=== PATIENT | male | born 1970 ===

== ENCOUNTER 2016-10-16 20:34 | Emergency (ER) | payer SELFPAY ==
[2016-10-16 20:48] VITALS: RESP 16; TEMP 98.1
[2016-10-16] MEDS ORDERED: Oxycodone/Acetaminophen 5/325 mg Tab PO STA (21:01)
--- NOTE | 2016-10-16 21:16 | ED PDOC ---
Upper Extremity Pain/Injury Time Seen by Provider: 10/16/16 20:49 Chief Complaint (Nursing): Upper Extremity Problem/Injury Chief Complaint (Provider): Atraumatic left shoulder pain and numbness History Per: Patient, Family History/Exam Limitations: no limitations Onset/Duration Of Symptoms: Days Current Symptoms Are (Timing): Still Present Additional Complaint(s): David Rodriguez, a 46 year old male, presents to the ED with atraumatic left shoulder pain and numbness. The patient states that last night the pain got worse and he then developed left sided chest pain. He reports that the pain worsens with movement of the left shoulder. Denies shortness of breath, abdominal pain, fever and dyspnea on exertion. Past Medical History Reviewed: Historical Data, Nursing Documentation, Vital Signs Vital Signs: Last Vital Signs Temp 98.1 F 10/16/16 20:47 Pulse 83 10/16/16 20:47 Resp 16 10/16/16 20:47 BP 147/83 10/16/16 20:47 Pulse Ox 99 10/16/16 20:47 - Medical History PMH: Gastritis, Gastrointestinal Ulcer (and GI bleed) Denies: Chronic Kidney Disease - Surgical History Surgical History: Endoscopy - Family History Family History: States: Unknown Family Hx - Allergies Allergies/Adverse Reactions: Allergies Allergy/AdvReac Type Severity Reaction Status Date / Time No Known Allergies Allergy Verified 09/23/15 09:12 Review of Systems Constitutional: Negative for: Fever Cardiovascular: Positive for: Chest Pain (Left sided chest pain) Respiratory: Positive for: Shortness of Breath. Negative for: SOB with Exertion Gastrointestinal: Negative for: Abdominal Pain Musculoskeletal: Positive for: Shoulder Pain (Left sided shoulder pain and numbness.) Physical Exam - Reviewed Nursing Documentation Reviewed: Yes Vital Signs Reviewed: Yes - Physical Exam Appears: Positive for: Non-toxic, No Acute Distress Head Exam: Positive for: ATRAUMATIC, NORMOCEPHALIC Skin: Positive for: Normal Color, Warm, Dry Eye Exam: Positive for: Normal appearance, EOMI, PERRL ENT: Positive for: Normal ENT Inspection Neck: Positive for: Normal, Painless ROM, Supple Cardiovascular/Chest: Positive for: Regular Rate, Rhythm, Chest Non Tender. Negative for: Tachycardia Respiratory: Positive for: Normal Breath Sounds. Negative for: Wheezing, Respiratory Distress Gastrointestinal/Abdominal: Positive for: Soft. Negative for: Normal Exam, Bowel Sounds, Tenderness Back: Positive for: Normal Inspection. Negative for: L CVA Tenderness, R CVA Tenderness Extremity: Positive for: Normal ROM. Negative for: Tenderness, Deformity, Swelling Neurologic/Psych: Positive for: Alert, Oriented - Laboratory Results Result Diagrams: 10/16/16 21:07 10/16/16 21:07 - ECG ECG: Positive for: Interpreted By Me ECG Rhythm: Positive for: Sinus Rhythm. Negative for: ST/T Changes Rate: 74 O2 Sat by Pulse Oximetry: 99 (RA) Pulse Ox Interpretation: Normal - Radiology X-Ray: Interpreted by Me (CXR) X-Ray Interpretation: No Acute Disease Medical Decision Making Medical Decision Makin:49 46 year old male presenting with left sided shoulder and chest pain with numbness Initial Plan: * EKG * CMP * Lipid panel * Troponin 1 * CBC * CXR * Percocet 5/325mg tab, * RAD left shoulder Scribe Attestation: Documented by Josie Vergara, acting as a scribe for Yazan Zee PA-C., MD Scribe Attestation: All medical record entries made by the Scribe were at my direction and personally dictated by me. I have reviewed the chart and agree that the record accurately reflects my personal performance of the history, physical exam, medical decision making, and the department course for this patient. I have also personally directed, reviewed, and agree with the discharge instructions and disposition. Disposition - Clinical Impression Clinical Impression: Shoulder pain, Chest pain - Patient ED Disposition Is Patient to be Admitted: Transfer of Care (Signed out to Tay VILLEGAS pending final disposition.) - Disposition Disposition Time: 00:00 Condition: STABLE SEAN Risk Score for UA/NSTEMI - SEAN Risk Score Age > 64: NO 3 or more CAD Risk Factors: YES Known CAD (Stenosis greater than 50%): NO Aspirin use in past 7 days: NO Severe Angina: NO EKG ST changes greater than 0.5mm: NO Positive Cardiac Marker: NO SEAN Score: 1 Risk %: 5%
[2016-10-16 21:18] LABS: BASO # 0.1 K/uL (0.0-0.2); BASO % 0.8 % (0.0-2.0); EOS # 0.2 K/uL (0.0-0.7); EOS % 2.9 % (0.0-4.0); HEMATOCRIT 46.1 % (35.0-51.0); LYMPH # 2.6 K/uL (1.0-4.3); LYMPH % 30.6 % (20.0-40.0); MEAN CELL VOLUME 78.3 fl (80.0-94.0); MEAN CORPUSCULAR HEMOGLOBIN 26.1 pg (27.0-31.0); MEAN CORPUSCULAR HGB CONC 33.4 g/dL (33.0-37.0); MEAN PLATELET VOLUME 9.3 fl (7.2-11.7); MONO # 0.9 K/uL (0.0-0.8); MONO % 10.2 % (0.0-10.0); NEUT # 4.6 K/uL (1.8-7.0); NEUT % 55.5 % (50.0-75.0); RED CELL DISTRIBUTION WIDTH 15.6 % (11.5-14.5); WHITE BLOOD COUNT 8.4 K/uL (4.8-10.8)
[2016-10-16] MEDS ORDERED: Oxycodone/Acetaminophen 5/325 mg Tab ONE (21:20)
[2016-10-16 21:28] LABS: ALB/GLOB RATIO 1.2 (1.0-2.1); ALKALINE PHOSPHATASE 83 U/L (38-126); ALT/SGPT 52 U/L (21-72); AST/SGOT 36 U/L (17-59); BILIRUBIN,TOTAL 0.3 mg/dl (0.2-1.3); BLOOD UREA NITROGEN 12 mg/dl (9-20); CALCIUM 9.2 mg/dL (8.4-10.2); CARBON DIOXIDE 24 mmol/L (22-30); CHLORIDE 102 mmol/L (98-107); CHOLESTEROL 183 mg/dL (0-199); GFR AFRICAN-AMERICAN > 60; GLUCOSE,RANDOM 115 mg/dL (75-110); POTASSIUM 3.9 MMOL/L (3.6-5.0); SODIUM 138 mmol/l (132-148); TOTAL PROTEIN 7.9 G/DL (6.3-8.2)
--- NOTE | 2016-10-16 22:13 | RAD ---
HISTORY: chest pain COMPARISON: Chest x-ray performed 09/28/14 TECHNIQUE: Chest PA and lateral FINDINGS: LUNGS: Mild central vascular/pulmonary venous congestion. Biapical pleural thickening. Please note that chest x-ray has limited sensitivity for the detection of pulmonary masses. PLEURA: No significant pleural effusion identified. No definite pneumothorax . CARDIOVASCULAR: Heart size appears top normal. OSSEOUS STRUCTURES: Degenerative changes of the spine. VISUALIZED UPPER ABDOMEN: Unremarkable. OTHER FINDINGS: None. IMPRESSION: Mild central vascular/ pulmonary venous congestion. Biapical pleural thickening.
--- NOTE | 2016-10-16 22:18 | RAD ---
PROCEDURE: Radiographs of the Left Shoulder HISTORY: pain COMPARISON: No prior. FINDINGS: BONES: No acute displaced fracture. The distal clavicle and underlying ribs appear intact. JOINTS: No acute dislocation. SOFT TISSUES: Soft tissues appear unremarkable. No evidence of radiopaque foreign body. IMPRESSION: No acute displaced fracture or dislocation evident. If symptoms persist or if there is continued clinical concern, x-ray follow-up in 7-10 days should be considered.
--- NOTE | 2016-10-17 00:16 | ED PDOC ---
- Laboratory Results Result Diagrams: 10/16/16 21:07 10/16/16 21:07 - ECG O2 Sat by Pulse Oximetry: 99 (RA) Pulse Ox Interpretation: Normal Medical Decision Making Medical Decision Making: Case was signed out to investigative writer from JOANN Zee pending family practice resident bedside evaluation and final disposition. Resident, Dr. Tabares discussed case with Dr. Martínez and patient is stable for discharge. Dr. Tabares will follow up with patient in clinic. Disposition - Clinical Impression Clinical Impression: Shoulder pain, Chest pain - POA Present On Arrival: None - Disposition Referrals: [facility] [Outside] Marcus Tabares DO [Resident] - Disposition: Routine/Home Disposition Time: 00:41 Condition: STABLE Prescriptions: Cyclobenzaprine [Cyclobenzaprine HCl] 10 mg PO TID PRN #15 tab PRN Reason: shoulder/back pain Methylprednisolone [Medrol Dosepak] 4 mg PO ASDIR #1 pkg Instructions: Shoulder Pain (ED)
[2016-10-17 00:44] VITALS: BP 135/80; PULSE 85; O2SAT 100
--- NOTE | 2016-10-18 01:28 | CARD ---
APPROVED REPORT EKG Measurement Heart [id number] <Conclusion> Normal sinus rhythm Incomplete right bundle branch block Borderline ECG
== END 2016-10-17 00:45 | disposition home or self-care (01) ==
LOC: H.ER 20:34
DX: M25.512 Pain in left shoulder (principal); I45.10 Unspecified right bundle-branch block; R07.9 Chest pain, unspecified

== ENCOUNTER 2017-01-03 19:39 | Emergency (ER) | payer SELFPAY ==
[2017-01-03 19:44] VITALS: BP 142/69; PULSE 68; RESP 18; TEMP 98.2; O2SAT 99
[2017-01-03 20:42] LABS: BASO % 0.5 % (0.0-2.0); EOS # 0.3 K/uL (0.0-0.7); EOS % 3.8 % (0.0-4.0); HEMOGLOBIN 14.8 g/dL (12.0-18.0); LYMPH # 3.1 K/uL (1.0-4.3); MEAN CELL VOLUME 79.7 fl (80.0-94.0); MEAN CORPUSCULAR HEMOGLOBIN 26.7 pg (27.0-31.0); MEAN CORPUSCULAR HGB CONC 33.4 g/dL (33.0-37.0); MEAN PLATELET VOLUME 9.5 fl (7.2-11.7); MONO # 0.9 K/uL (0.0-0.8); MONO % 10.4 % (0.0-10.0); NEUT # 4.5 K/uL (1.8-7.0); NEUT % 50.3 % (50.0-75.0); NRBC % 0.1 % (0.0-0.0); RBC 5.56 Mil/uL (4.40-5.90); RED CELL DISTRIBUTION WIDTH 14.9 % (11.5-14.5); WHITE BLOOD COUNT 8.9 K/uL (4.8-10.8)
[2017-01-03 20:48] LABS: ALB/GLOB RATIO 1.2 (1.0-2.1); ALBUMIN 4.3 g/dL (3.5-5.0); ALT/SGPT 61 U/L (21-72); AST/SGOT 32 U/L (17-59); BLOOD UREA NITROGEN 16 mg/dl (9-20); CALCIUM 9.5 mg/dL (8.4-10.2); GFR AFRICAN-AMERICAN > 60; GFR NON-AFRICAN AMERICAN > 60; URIC ACID 8.9 mg/Dl (3.5-8.5)
[2017-01-03] MEDS ORDERED: MethylPREDNISolone Depo 40 mg/ml Inj IM ONE (21:22)
[2017-01-03] MEDS ORDERED: Bupivacaine HCl 0.5% PF (10 ml) Inj IJ ONE (21:22)
--- NOTE | 2017-01-03 21:25 | ED PDOC ---
Lower Extremity Pain/Injury Time Seen by Provider: 01/03/17 19:51 Chief Complaint (Nursing): Lower Extremity Problem/Injury Chief Complaint (Provider): Right Ankle Pain History Per: Patient History/Exam Limitations: no limitations Onset/Duration Of Symptoms: Days (x3 weeks) Current Symptoms Are (Timing): Still Present Additional Complaint(s): David Farris, a 46 year old male, with a past medical history of gout presents to the ED with right ankle pain x3 weeks. The patient states that the pain is constant and has been worsening since onset. He states that he has been taking ibuprofen for the pain with no relief. The patient reports that the pain is associated with ankle swelling similar to joint swelling he gets with gouty attacks.Denies fever, trauma, injury, numbness, calf pain or swelling. Patient goes to [facility] Past Medical History Reviewed: Historical Data, Nursing Documentation, Vital Signs Vital Signs: Last Vital Signs Temp 98.2 F 01/03/17 19:39 Pulse 68 01/03/17 19:39 Resp 18 01/03/17 19:39 BP 142/69 01/03/17 19:39 Pulse Ox 99 01/03/17 19:39 - Medical History PMH: Gastritis, Gastrointestinal Ulcer (and GI bleed) Denies: Chronic Kidney Disease Other PMH: Gout, Ulcer - Surgical History Surgical History: Endoscopy - Family History Family History: States: Unknown Family Hx - Social History Current smoker - smoking cessation education provided: No Alcohol: Occasional Drugs: Denies - Home Medications Home Medications: Ambulatory Orders Medication Instructions Recorded Cyclobenzaprine [Cyclobenzaprine 10 mg PO TID PRN #15 tab 10/17/16 HCl] Methylprednisolone [Medrol Dosepak] 4 mg PO ASDIR #1 pkg 10/17/16 Indomethacin [Indocin] 50 mg PO TID #30 cap 01/03/17 Lidocaine 5% [Lidoderm] 1 ea TD DAILY PRN #30 patch 01/03/17 traMADol [Ultram] 50 mg PO TID PRN #15 tab 01/03/17 - Allergies Allergies/Adverse Reactions: Allergies Allergy/AdvReac Type Severity Reaction Status Date / Time No Known Allergies Allergy Verified 09/23/15 09:12 Review of Systems ROS Statement: Except As Marked, All Systems Reviewed And Found Negative (and as per HPI) Constitutional: Negative for: Fever Musculoskeletal: Positive for: Other (Right ankle pain; No trauma or injury to ankle; no numbness; calf pain or swelling) Physical Exam - Reviewed Nursing Documentation Reviewed: Yes - Physical Exam Appears: Positive for: Non-toxic, In Acute Distress Head Exam: Positive for: ATRAUMATIC, NORMOCEPHALIC Skin: Positive for: Warm, Dry Respiratory: Positive for: Normal Breath Sounds. Negative for: Respiratory Distress Extremity: Positive for: Other (LEFT ankle: Mild diffuse edema with ttp medial malleolus, no deformity, no warmth, no erythema. PROM illicit pain.). Negative for: Calf Tenderness, Deformity - Laboratory Results Result Diagrams: 01/03/17 20:34 01/03/17 20:34 - ECG O2 Sat by Pulse Oximetry: 99 (RA) Pulse Ox Interpretation: Normal Medical Decision Making Medical Decision Makin Initial Impression: 46 year old male presenting with ankle pain Differentials: Sprain, Gouty Attack, Other inflammatory arthritis, Fracture Initial Plan: * CMP * Uric Acid * CBC * Erythrocyte Sedimentation Rate * Toradol 15mg IVP * Tylenol 975mg PO * RAD ANKLE RIGHT * Reevaluation 2109 Podiatry to put steroid injection in patients ankle. Scribe Attestation Documented by Josie Vergara acting as a scribe for Carola Brewer MD. Provider Attestation All medical record entries made by the Scribe were at my direction and personally dictated by me. I have reviewed the chart and agree that the record accurately reflects my personal performance of the history, physical exam, medical decision making, and the department course for this patient. I have also personally directed, reviewed, and agree with the discharge instructions and disposition. Disposition - Clinical Impression Clinical Impression: Ankle pain, Gout Counseled Patient/Family Regarding: Studies Performed - Disposition Referrals: Mary Franco DPM [Staff Provider] - (FOLLOW UP WITH DR FRANCO AT [facility] ON TUESDAY) Disposition: Routine/Home Disposition Time: 21:00 Condition: STABLE Prescriptions: Indomethacin [Indocin] 50 mg PO TID #30 cap Lidocaine 5% [Lidoderm] 1 ea TD DAILY PRN #30 patch PRN Reason: PAIN traMADol [Ultram] 50 mg PO TID PRN #15 tab PRN Reason: SEVERE PAIN ONLY Instructions: Gout (ED), Steroid Joint Injection (GEN) Forms: [facility] (Mosotho) Print Language: DANISH
--- NOTE | 2017-01-03 21:29 | CP.PCM.CON ---
History of Present Illness - History of Present Illness History of Present Illness: 46 years old male patient with past medical history of Gout, DM presented to ER with the complain of pain to right ankle lasting for more than 4 days. Patient states that he had gouty attack before in the same spot in the past and was treated with Colchicine. Patient does not remember the name of the doctor who treated him in the past for gout. Patient states that the pain started about 4 days ago and have gotten worse until today. He states that he tried Colchicine for 1 day which did not help. He denies any trauma to the right lower extremity. No family history of bleeding disorder, cancer, no recent traveling, no history of liver disease. Patient denies of any N/V/F/C or SOB today Past Patient History - Infectious Disease Hx of Infectious Diseases: None - Past Medical History & Family History Past Medical History?: Yes - Past Social History Smoking Status: Never Smoked - CARDIAC Hx Cardiac Disorders: No - PULMONARY Hx Respiratory Disorders: No - NEUROLOGICAL Hx Neurological Disorder: No - HEENT Hx HEENT Problems: No - RENAL Hx Chronic Kidney Disease: No - ENDOCRINE/METABOLIC Hx Endocrine Disorders: No - HEMATOLOGICAL/ONCOLOGICAL Hx Blood Disorders: No - INTEGUMENTARY Hx Dermatological Problems: No - MUSCULOSKELETAL/RHEUMATOLOGICAL Hx Musculoskeletal Disorders: Yes Hx Gout: Yes - GASTROINTESTINAL Hx Gastritis: Yes - GENITOURINARY/GYNECOLOGICAL Hx Genitourinary Disorders: No - PSYCHIATRIC Hx Psychophysiologic Disorder: No Hx Substance Use: No - SURGICAL HISTORY Hx Surgeries: No - ANESTHESIA Hx Anesthesia: Yes Meds Home Medications: Home Medication List Medication Instructions Recorded Confirmed Type Indomethacin [Indocin] 50 mg PO TID #30 cap 01/03/17 Rx Lidocaine 5% [Lidoderm] 1 ea TD DAILY PRN #30 patch 01/03/17 Rx traMADol [Ultram] 50 mg PO TID PRN #15 tab 01/03/17 Rx Allergies/Adverse Reactions: Allergies Allergy/AdvReac Type Severity Reaction Status Date / Time No Known Allergies Allergy Verified 09/23/15 09:12 - Medications Medications: Current Medications Bupivacaine HCl (Marcaine 0.5% Pf (10 Ml)) 0 ml IJ ONCE ONE Stop: 01/03/17 21:23 Methylprednisolone Acetate (Depo-Medrol) 40 mg IM ONCE ONE Stop: 01/03/17 21:23 Physical Exam - Constitutional Appears: Well, No Acute Distress - Head Exam Head Exam: ATRAUMATIC - Extremities Exam Additional comments: Right lower extremity exam DERM: No open wound. Mild erythema noted around the ankle. No drainage, no maceration, no clinical sign of infection is noted. VASC: Mild swelling to right ankle noted. Skin to right ankle warm to touch. Palpable DP and PT noted bilaterally. 2/4 MANAGER OPERATIONS Less than 3 seconds to all digits ORTHO: Pain on palpation to right ankle, anteriorly and laterally. Limited ROM to right ankle secondary to guarding NEURO: Gross sensation intact - Neurological Exam Neurological exam: Alert, Oriented x3 - Psychiatric Exam Psychiatric exam: Normal Affect, Normal Mood - Skin Skin Exam: Normal Color, Warm Results - Vital Signs Recent Vital Signs: Last Vital Signs Temp 98.2 F 01/03/17 19:39 Pulse 68 01/03/17 19:39 Resp 18 01/03/17 19:39 BP 142/69 01/03/17 19:39 Pulse Ox 99 01/03/17 19:39 - Labs Result Diagrams: 01/03/17 20:34 01/03/17 20:34 Labs: Laboratory Results - last 24 hr 01/03/17 01/03/17 20:34 20:34 WBC 8.9 RBC 5.56 Hgb 14.8 Hct 44.4 MCV 79.7 L MCH 26.7 L MCHC 33.4 RDW 14.9 H Plt Count 201 MPV 9.5 Neut % (Auto) 50.3 Lymph % (Auto) 35.0 [place] % (Auto) 10.4 H Eos % (Auto) 3.8 Baso % (Auto) 0.5 Neut # 4.5 Lymph # 3.1 [place] # 0.9 H Eos # 0.3 Baso # 0.0 Sodium 138 Potassium 4.3 Chloride 101 Carbon Dioxide 28 Anion Gap 13 BUN 16 Creatinine 0.8 Est GFR ( Amer) > 60 Est GFR (Non-Af Amer) > 60 Random Glucose 98 Uric Acid 8.9 H Calcium 9.5 Total Bilirubin 0.4 AST 32 ALT 61 Alkaline Phosphatase 84 Total Protein 7.8 Albumin 4.3 Globulin 3.5 Albumin/Globulin Ratio 1.2 Assessment & Plan - Assessment and Plan (Free Text) Assessment: 46 yo male patient presenting with gouty attack to right ankle joint Plan: Patient was seen, evaluated and treated in ED discussed in detail with attending Dr. Franco labs and vitals reviewed; Uric acid level 8.9 Xrays reviewed; no signs consistent with fracture Right ankle was prepped with Betadine and Saline Injection consisting of 2cc 0.5% Marcaine plain and 1cc Depomedrol was given to the right ankle joint space, iman-lateral approach; Verbal consent obtained. NKDA Rx for indomethacine was given to the patient per ED Patient was advised to follow up at [facility] podiatry clinic next Tuesday
[2017-01-03] MEDS ORDERED: Bupivacaine HCl 0.5% PF (30 ml) Inj ONE (21:41)
--- NOTE | 2017-01-04 10:24 | RAD ---
PROCEDURE: Right Ankle Radiographs. HISTORY: RIGHT ankle pain COMPARISON: Right ankle 11/05/2009. FINDINGS: BONES: There is no acute fracture subluxation or dislocation at the ankle mortise appearing stable and grossly unremarkable appearing. No suspicious lytic or blastic changes identified. JOINTS: Degenerative osteophytes are identified at the anterior as well as posterior tibiotalar joint. SOFT TISSUES: Normal. OTHER FINDINGS: A moderate plantar calcaneal spur identified. IMPRESSION: No acute fracture or dislocation right ankle. 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 Moderate plantar calcaneal spur noted.
== END 2017-01-03 22:09 | disposition home or self-care (01) ==
LOC: H.ER 19:39
DX: M10.9 Gout, unspecified (principal); E11.9 Type 2 diabetes mellitus without complications

== ENCOUNTER 2017-01-31 11:13 | Emergency (ER) | payer SELFPAY ==
[2017-01-31 11:22] VITALS: BP 139/80; PULSE 70; RESP 16; TEMP 97.8; O2SAT 97
--- NOTE | 2017-01-31 11:56 | ED PDOC ---
Lower Extremity Pain/Injury Time Seen by Provider: 01/31/17 11:30 Chief Complaint (Nursing): Lower Extremity Problem/Injury Chief Complaint (Provider): Lower Extremity Problem/Injury History Per: Patient History/Exam Limitations: no limitations Onset/Duration Of Symptoms: Days (x26) Current Symptoms Are (Timing): Still Present Additional Complaint(s): David Farris is a 46 year old male with a past medical history of Gout presenting to the ED for an evaluation of right ankle pain. The patient reports he was last seen here on 01/03/17 and was diagnosed with Gout which improved with his prescriptions of Tramadol and Indicine, but he recently ran out and the pain has recurred. He denies trauma or fever. PMD: [facility] Past Medical History Reviewed: Historical Data, Nursing Documentation, Vital Signs Vital Signs: Last Vital Signs Temp 97.8 F 01/31/17 11:19 Pulse 70 01/31/17 11:19 Resp 16 01/31/17 11:19 BP 139/80 01/31/17 11:19 Pulse Ox 97 01/31/17 11:19 - Medical History PMH: Gastritis, Gastrointestinal Ulcer (and GI bleed) Denies: Chronic Kidney Disease Other PMH: gout - Surgical History Surgical History: Endoscopy - Family History Family History: States: Unknown Family Hx - Home Medications Home Medications: Ambulatory Orders Medication Instructions Recorded Cyclobenzaprine [Cyclobenzaprine 10 mg PO TID PRN #15 tab 10/17/16 HCl] Methylprednisolone [Medrol Dosepak] 4 mg PO ASDIR #1 pkg 10/17/16 Indomethacin [Indocin] 50 mg PO TID #30 cap 01/03/17 Lidocaine 5% [Lidoderm] 1 ea TD DAILY PRN #30 patch 01/03/17 traMADol [Ultram] 50 mg PO TID PRN #15 tab 01/03/17 Naproxen [Naprosyn] 500 mg PO Q12H #20 tab 01/31/17 traMADol [Ultram] 50 mg PO Q8 #10 tab 01/31/17 - Allergies Allergies/Adverse Reactions: Allergies Allergy/AdvReac Type Severity Reaction Status Date / Time No Known Allergies Allergy Verified 09/23/15 09:12 Review of Systems ROS Statement: Except As Marked, All Systems Reviewed And Found Negative Constitutional: Negative for: Fever Musculoskeletal: Positive for: Foot Pain (right ankle pain ) Physical Exam - Reviewed Nursing Documentation Reviewed: Yes Vital Signs Reviewed: Yes - Physical Exam Appears: Positive for: Non-toxic, No Acute Distress Head Exam: Positive for: ATRAUMATIC, NORMOCEPHALIC Skin: Positive for: Normal Color, Warm, Dry Eye Exam: Positive for: Normal appearance, EOMI ENT: Positive for: Normal ENT Inspection Neck: Positive for: Normal, Painless ROM Cardiovascular/Chest: Positive for: Regular Rate, Rhythm. Negative for: Murmur Respiratory: Positive for: Normal Breath Sounds. Negative for: Respiratory Distress Extremity: Positive for: Tenderness (mild tenderness to right ankle ), Swelling (mild swelling to right ankle ). Negative for: Deformity (or erythema to medial mallelous ) Neurologic/Psych: Positive for: Alert, Oriented - ECG O2 Sat by Pulse Oximetry: 97 (RA) Pulse Ox Interpretation: Normal Medical Decision Making Medical Decision Making: Time: 11:30 Impression: Right ankle pain Plan: * Uric Acid * Toradol 30 mg IVP * Reevaluation Scribe Attestation: Documented by Katherine Wong, acting as a scribe for Cortez Bright MD. Provider Scribe Attestation: All medical record entries made by the Scribe were at my direction and personally dictated by me. I have reviewed the chart and agree that the record accurately reflects my personal performance of the history, physical exam, medical decision making, and the department course for this patient. I have also personally directed, reviewed, and agree with the discharge instructions and disposition. Disposition - Clinical Impression Clinical Impression: Gout - Patient ED Disposition Is Patient to be Admitted: No Counseled Patient/Family Regarding: Studies Performed, Diagnosis, Need For Followup, Rx Given - Disposition Referrals: [facility] [Outside] Disposition: Routine/Home Disposition Time: 12:13 Condition: FAIR Prescriptions: Naproxen [Naprosyn] 500 mg PO Q12H #20 tab traMADol [Ultram] 50 mg PO Q8 #10 tab Instructions: Gout (ED) Forms: [facility] (Thai) Print Language: SOUTH KOREAN
== END 2017-01-31 12:49 | disposition home or self-care (01) ==
LOC: H.ER 11:13
DX: M10.9 Gout, unspecified (principal)
CPT/HCPCS: 84550; 96374; 99283; J1885

== ENCOUNTER 2017-09-24 13:05 | Emergency (ER) | payer SELFPAY ==
[2017-09-24 13:12] VITALS: BP 138/84; PULSE 69; RESP 18; TEMP 98.3; O2SAT 98
[2017-09-24] MEDS ORDERED: Lidocaine 2% w Epi 1:100,000 Inj IJ ONE (13:29)
[2017-09-24] MEDS ORDERED: Lidocaine 1% w Epi 1:100,000 Inj ONE (13:36)
[2017-09-24] MEDS ORDERED: Povidone Iodine Topical 10% Sol ONE (13:44)
--- NOTE | 2017-09-24 14:50 | ED PDOC ---
Lower Extremity Pain/Injury Time Seen by Provider: 09/24/17 13:17 Chief Complaint (Nursing): Abnormal Skin Integrity Chief Complaint (Provider): Laceration on Right Lower Thigh History Per: Patient History/Exam Limitations: no limitations Onset/Duration Of Symptoms: Days (09/24/17) Current Symptoms Are (Timing): Still Present Additional Complaint(s): 46 year old male presents to the ED complaining of a laceration on right lower thigh onset prior to arrival. Patient states he was using a saw to cut wood and accidentally injured himself. Otherwise: (-) numbness, (-) decreased range of motion, and (-) other injuries. Tetanus vaccination is UTD. PMD: Dr. Elena Past Medical History Reviewed: Historical Data, Nursing Documentation, Vital Signs Vital Signs: Last Vital Signs Temp 98.3 F 09/24/17 13:09 Pulse 69 09/24/17 13:09 Resp 18 09/24/17 13:09 BP 138/84 09/24/17 13:09 Pulse Ox 98 09/24/17 13:09 - Medical History PMH: Gastritis, Gastrointestinal Ulcer (and GI bleed) Denies: Chronic Kidney Disease - Surgical History Surgical History: Endoscopy - Family History Family History: States: Unknown Family Hx - Social History Current smoker - smoking cessation education provided: No Alcohol: Occasional Drugs: Denies - Home Medications Home Medications: Ambulatory Orders Medication Instructions Recorded Cyclobenzaprine [Cyclobenzaprine 10 mg PO TID PRN #15 tab 10/17/16 HCl] Methylprednisolone [Medrol Dosepak] 4 mg PO ASDIR #1 pkg 10/17/16 Indomethacin [Indocin] 50 mg PO TID #30 cap 01/03/17 Lidocaine 5% [Lidoderm] 1 ea TD DAILY PRN #30 patch 01/03/17 traMADol [Ultram] 50 mg PO TID PRN #15 tab 01/03/17 Naproxen [Naprosyn] 500 mg PO Q12H #20 tab 01/31/17 traMADol [Ultram] 50 mg PO Q8 #10 tab 01/31/17 - Allergies Allergies/Adverse Reactions: Allergies Allergy/AdvReac Type Severity Reaction Status Date / Time No Known Allergies Allergy Verified 09/23/15 09:12 Review of Systems ROS Statement: Except As Marked, All Systems Reviewed And Found Negative Musculoskeletal: Negative for: Other (decreased range of motion) Skin: Positive for: Other (laceration on right lower thigh ) Neurological: Negative for: Numbness Psych: Negative for: Suicidal ideation (homicidal ideation) Physical Exam - Physical Exam Comments: GENERAL APPEARANCE: Patient is awake, alert, oriented x 3, in no acute distress. SKIN: Warm, dry; (-) cyanosis. LOWER EXTREMITY: Right Leg: (+) 5cm laceration to the anterior lower right thigh , distal pulses intact, distal sensation intact, (-) foreign body noted in the wound; (+) full range of motion. CARDIOVASCULAR: (+) distal pulse. NEUROLOGIC: (+) distal sensation. - ECG O2 Sat by Pulse Oximetry: 98 (RA) Pulse Ox Interpretation: Normal Medical Decision Making Medical Decision Making: Time: 1329 Initial Plan: --Lidocaine/Epinephrine 5ml --Reevaluation PROCEDURE: LACERATION REPAIR Performed by Michelle Price PA-C Location: Anterior Lower Right Thigh Length:5cm Description:clean wound edges, no foreign bodies Distal CMS:Normal. No deficits. Neurovascularly intact. Anesthesia:Lidocaine W/ Epi Preparation:The wound was irrigated with 100cc. The area was prepped and draped in the usual sterile fashion. Exploration:The wound was explored and no foreign bodies were found. Procedure:The wound was closed with 6, 4-0 nylon by JOANN. There was good approximation. Post-Procedure:Good closure and hemostasis. The patient tolerated the procedure well and there were no complications. Post procedure dressing applied. Advised to follow up with primary care physician at the clinic in 1-2 days without fail for wound check, advised to have sutures removed after 7 days Return to the emergency room at any time for any new or worsening symptoms. Patient states he fully agrees with and understands discharge instructions. States that he agrees with the plan and disposition. Verbalized and repeated discharge instructions and plan. I have given the patient opportunity to ask any additional questions. Scribe Attestation: Documented by Claudia Wallace, acting as a scribe for Michelle Price PA-C Provider Scribe Attestation: All medical record entries made by the Scribe were at my direction and personally dictated by me. I have reviewed the chart and agree that the record accurately reflects my personal performance of the history, physical exam, medical decision making, and the department course for this patient. I have also personally directed, reviewed, and agree with the discharge instructions and disposition. Procedures - Time-Out Correct Patient (with visual ID + MR# on ID Band): Yes Correct Procedure: Yes Correct Site Marked: Yes Medication Reconciliation / Bloodwork / Allergies Checked: Yes PA/Tech: Michelle Price Disposition - Clinical Impression Clinical Impression: Leg laceration - Patient ED Disposition Is Patient to be Admitted: No Counseled Patient/Family Regarding: Diagnosis, Need For Followup - Disposition Referrals: [facility] [Outside] Disposition: Routine/Home Disposition Time: 14:00 Condition: STABLE Additional Instructions: Thank you for letting us take care of you today. You were treated for right leg laceration. The emergency medical care you received today was directed at your acute symptoms. Clean wound daily with regular soap and water. Have sutures removed after 7 days. Return to the Emergency Department if your symptoms worsen , do not improve, or if you have any other problems. Please contact your doctor in 2 days for re-evaluation and follow up / or call one of the physicians/clinics you have been referred to that are listed on the Patient Visit Information form that is included in your discharge packet. Bring any paperwork you were given at discharge with you along with any medications you are taking to your follow up visit. Our treatment cannot replace ongoing medical care by a primary care provider (PCP) outside of the emergency department. Thank you for allowing the [facility] team to be part of your care today. 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
== END 2017-09-24 14:18 | disposition home or self-care (01) ==
LOC: H.ER 13:05
DX: S81.819A Laceration without foreign body, unspecified lower leg, initial encounter (principal); W26.8XXA Contact with other sharp object(s), not elsewhere classified, initial encounter; Y92.89 Other specified places as the place of occurrence of the external cause

== ENCOUNTER 2017-10-03 10:17 | Emergency (ER) | payer SELFPAY ==
[2017-10-03 10:51] VITALS: BMI 37.5
[2017-10-03 10:52] VITALS: BP 128/80; PULSE 59; RESP 20; TEMP 97.9; O2SAT 98
--- NOTE | 2017-10-03 11:07 | ED PDOC ---
Lower Extremity Pain/Injury Time Seen by Provider: 10/03/17 11:05 Chief Complaint (Nursing): Suture/Staple Removal Chief Complaint (Provider): suture removal History Per: Patient (46 y/o male here for suture removal. Has had laceration to right thigh 9 days prior. Has been walking with injury. No fevers/chills.) Past Medical History Reviewed: Historical Data, Nursing Documentation, Vital Signs Vital Signs: Last Vital Signs Temp 97.9 F 10/03/17 10:51 Pulse 59 L 10/03/17 10:51 Resp 20 10/03/17 10:51 BP 128/80 10/03/17 10:51 Pulse Ox 98 10/03/17 10:51 - Medical History PMH: Gastritis, Gastrointestinal Ulcer (and GI bleed) Denies: Chronic Kidney Disease - Surgical History Surgical History: Endoscopy - Family History Family History: States: Unknown Family Hx - Home Medications Home Medications: Ambulatory Orders Medication Instructions Recorded Cyclobenzaprine [Cyclobenzaprine 10 mg PO TID PRN #15 tab 10/17/16 HCl] Methylprednisolone [Medrol Dosepak] 4 mg PO ASDIR #1 pkg 10/17/16 Indomethacin [Indocin] 50 mg PO TID #30 cap 01/03/17 Lidocaine 5% [Lidoderm] 1 ea TD DAILY PRN #30 patch 01/03/17 traMADol [Ultram] 50 mg PO TID PRN #15 tab 01/03/17 Naproxen [Naprosyn] 500 mg PO Q12H #20 tab 01/31/17 traMADol [Ultram] 50 mg PO Q8 #10 tab 01/31/17 - Allergies Allergies/Adverse Reactions: Allergies Allergy/AdvReac Type Severity Reaction Status Date / Time No Known Allergies Allergy Verified 09/23/15 09:12 Review of Systems ROS Statement: Except As Marked, All Systems Reviewed And Found Negative Physical Exam - Reviewed Nursing Documentation Reviewed: Yes Vital Signs Reviewed: Yes - Physical Exam Appears: Positive for: Well, Non-toxic, No Acute Distress Head Exam: Positive for: ATRAUMATIC, NORMAL INSPECTION, NORMOCEPHALIC Skin: Positive for: Normal Color, Warm, DRY Eye Exam: Positive for: EOMI, Normal appearance, PERRL ENT: Positive for: Normal ENT Inspection Neck: Positive for: Normal, Painless ROM Cardiovascular/Chest: Positive for: Regular Rate, Rhythm Respiratory: Positive for: CNT, Normal Breath Sounds Gastrointestinal/Abdominal: Positive for: Normal Exam, Soft Back: Positive for: Normal Inspection Extremity: Positive for: Normal ROM, Other (sutures intact. No sign of infection.) Neurologic/Psych: Positive for: Alert, Oriented - ECG O2 Sat by Pulse Oximetry: 98 - Progress ED Course And Treament: Patient advised to return in 3-5 days for removal of sutures. Disposition - Clinical Impression Clinical Impression: Visit for wound check - Patient ED Disposition Is Patient to be Admitted: No - Disposition Disposition: Routine/Home Disposition Time: 11:08 Condition: FAIR Additional Instructions: REGRESA EN 4-5 NOYOLA PARA QUITAR PUNTOS. Instructions: Isidorotchcindy Print Language: JAMAICAN
== END 2017-10-03 11:31 | disposition home or self-care (01) ==
LOC: H.ER 10:17
DX: Z48.02 Encounter for removal of sutures (principal)

== ENCOUNTER 2017-10-07 07:51 | Emergency (ER) | payer SELFPAY ==
[2017-10-07 07:51] VITALS: BMI 37.5
[2017-10-07 07:58] VITALS: TEMP 98; O2SAT 98
[2017-10-07 09:27] VITALS: BP 130/70; PULSE 70; RESP 18
--- NOTE | 2017-10-07 10:08 | ED PDOC ---
HPI: Wound Care - HPI Time Seen by Provider: 10/07/17 08:13 Chief Complaint (Nursing): Wound Check Chief Complaint (Provider): Wound Check History Per: Patient Exam Limitations: no limitations Additional Complaint(s): 47 years old male presents to the ED for suture removal of his right leg. Patient states he was seen in this ED for suture replacement 2 weeks ago. He denies any discharge, fever or swelling of the wound. Patient offers no medical concerns. PMD: non provided Past Medical History Reviewed: Historical Data, Nursing Documentation, Vital Signs Vital Signs: Last Vital Signs Temp 98 F 10/07/17 07:56 Pulse 70 10/07/17 09:20 Resp 18 10/07/17 09:20 BP 130/70 10/07/17 09:20 Pulse Ox 98 10/07/17 09:20 - Medical History PMH: Gastritis, Gastrointestinal Ulcer (and GI bleed) Denies: Chronic Kidney Disease - Surgical History Surgical History: Endoscopy - Family History Family History: States: Unknown Family Hx - Social History Current smoker - smoking cessation education provided: No Alcohol: None Drugs: Denies - Home Medications Home Medications: Ambulatory Orders Medication Instructions Recorded Cyclobenzaprine [Cyclobenzaprine 10 mg PO TID PRN #15 tab 10/17/16 HCl] Methylprednisolone [Medrol Dosepak] 4 mg PO ASDIR #1 pkg 10/17/16 Indomethacin [Indocin] 50 mg PO TID #30 cap 01/03/17 Lidocaine 5% [Lidoderm] 1 ea TD DAILY PRN #30 patch 01/03/17 traMADol [Ultram] 50 mg PO TID PRN #15 tab 01/03/17 Naproxen [Naprosyn] 500 mg PO Q12H #20 tab 01/31/17 traMADol [Ultram] 50 mg PO Q8 #10 tab 01/31/17 - Allergies Allergies/Adverse Reactions: Allergies Allergy/AdvReac Type Severity Reaction Status Date / Time No Known Allergies Allergy Verified 10/03/17 11:11 Review of Systems ROS Statement: Except As Marked, All Systems Reviewed And Found Negative Constitutional: Negative for: Fever Musculoskeletal: Negative for: Leg Pain (right) Physical Exam - Reviewed Nursing Documentation Reviewed: Yes Vital Signs Reviewed: Yes - Physical Exam Appears: Positive for: Non-toxic, No Acute Distress Head Exam: Positive for: ATRAUMATIC, NORMOCEPHALIC Eye Exam: Positive for: EOMI Extremity: Positive for: Normal ROM, Other (linear wound above right knee, no redness or discharge, no dehiscense. 6 sutures present). Negative for: Swelling (of right leg) Neurologic/Psych: Positive for: Alert, Oriented - ECG O2 Sat by Pulse Oximetry: 98 (RA) Pulse Ox Interpretation: Normal Medical Decision Making Medical Decision Making: Initial impression: Suture removal. Procedure: Suture removal Right knee 6 sutures of right leg were removed by me with no complications. Scribe Attestation: Documented by Pamela Callejas, acting as a scribe for Cori Sanchez MD. Provider Scribe Attestation: All medical record entries made by the Scribe were at my direction and personally dictated by me. I have reviewed the chart and agree that the record accurately reflects my personal performance of the history, physical exam, medical decision making, and the department course for this patient. I have also personally directed, reviewed, and agree with the discharge instructions and disposition. Disposition - Clinical Impression Clinical Impression: Encounter for removal of sutures - Patient ED Disposition Is Patient to be Admitted: No - Disposition Referrals: [facility] [Outside] Disposition: Routine/Home Disposition Time: 09:00 Condition: GOOD Additional Instructions: Follow up with your PCP as needed. Instructions: Stitches Removal
== END 2017-10-07 09:21 | disposition home or self-care (01) ==
LOC: H.ER 07:51
DX: Z48.02 Encounter for removal of sutures (principal)